=== PATIENT | female | born 1995 | race Caucasian/White ===

== ENCOUNTER → 2018-05-16 09:57 | Outpatient (CLI) | payer OTHER, MEDICAID, SELFPAY ==
--- NOTE | 2018-05-16 10:05 | XR_ITS ---
XR chest 2V HISTORY: ITS.REASON: CHEST WALL PAIN ORDERING PHYSICIAN: ORIN Finley PATIENT AGE: 22 years COMPARISON: 04/23/2018 FINDINGS: The cardiomediastinal silhouette and pulmonary vascularity are within normal limits. No lobar consolidation or collapse. The left hilar region is once again noted to be slightly prominent and may be slightly improved. There is also increased density in the right suprahilar region which may be due to summation density from the rib end and vessels. Recommend 8-12 week follow-up. No acute bony anomalies. IMPRESSION: 1. No definite acute finding. 2. Nonspecific findings including prominence of left hilum and increased density in the right suprahilar region. Consider a to 12 week follow-up to confirm stability. Cannot exclude left hilar adenopathy or parenchymal lesion in the right upper lobe
== END ==
PROVIDERS: PCP Family Medicine; Visit Provider Physician Assistant
DX: R07.89 Other chest pain (principal)
CPT/HCPCS: 71046

== ENCOUNTER → 2018-06-20 13:26 | Outpatient (CLI) | payer OTHER, MEDICAID, SELFPAY ==
--- NOTE | 2018-06-20 13:33 | XR_ITS ---
XR sacrum coccyx min 2V CLINICAL INDICATION: ITS.REASON: LOW BACK PAIN ORDERING PHYSICIAN: ORIN Finley PATIENT AGE: 23 years Comparison: None FINDINGS: No fracture or dislocation. Normal alignment. No lytic or blastic change or significant degenerative change. IMPRESSION: Negative coccyx/sacrum
== END ==
PROVIDERS: PCP Family Medicine; Visit Provider Physician Assistant
DX: M54.5 Low back pain (principal)
CPT/HCPCS: 72220

== ENCOUNTER → 2018-06-26 13:35 | Outpatient (CLI) | payer OTHER, MEDICAID, SELFPAY ==
--- NOTE | 2018-06-26 13:40 | XR_ITS ---
XR hip RT 2-3V w/pelvis HISTORY: ITS.REASON: RT HIP PAIN ORDERING PHYSICIAN: ORIN Finley PATIENT AGE: 23 years COMPARISON: None FINDINGS: No fracture or dislocation is evident. No significant degenerative change. No lytic or blastic change. Unremarkable soft tissues IMPRESSION: Negative hip
--- NOTE | 2018-06-26 13:40 | XR_ITS ---
XR femur RT 2V CLINICAL INDICATION: Right hip pain and tingling in right leg ITS.REASON: RT HIP PAIN ORDERING PHYSICIAN: ORIN Finley PATIENT AGE: 23 years Comparison: None FINDINGS: The right femur including hip and knee have an unremarkable appearance. No bony or joint abnormalities are evident. No soft tissue calcifications IMPRESSION: Negative right femur
== END ==
PROVIDERS: PCP Physician Assistant; Visit Provider Physician Assistant
DX: M25.551 Pain in right hip (principal)
CPT/HCPCS: 73502; 73552

== ENCOUNTER 2018-09-05 11:00 | Outpatient (RCR) | payer OTHER, SELFPAY, MEDICAID ==
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
== END 2018-09-05 11:05 | disposition home or self-care (01) ==
LOC: PT 11:00
PROVIDERS: PCP Physician Assistant; Visit Provider Family Medicine
DX: M53.3 Sacrococcygeal disorders, not elsewhere classified (principal); R20.2 Paresthesia of skin; M25.551 Pain in right hip
CPT/HCPCS: 97010; 97012; 97014; 97033; 97035; 97110; 97163; 97164; G0283

== ENCOUNTER → 2018-09-17 15:53 | Outpatient (CLI) | payer MEDICAID, SELFPAY ==
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
== END ==
PROVIDERS: PCP Family Medicine; Visit Provider Orthopaedic Surgery
DX: M70.61 Trochanteric bursitis, right hip (principal); M76.31 Iliotibial band syndrome, right leg
CPT/HCPCS: 73721

== ENCOUNTER → 2018-11-28 10:19 | Outpatient (CLI) | payer MEDICAID, SELFPAY ==
[2018-11-28 11:42] LABS: HCG,Quantitative 5357 mIU/mL
== END ==
PROVIDERS: Visit Provider Obstetrics & Gynecology
DX: O26.841 Uterine size-date discrepancy, first trimester (principal); Z34.90 Encounter for supervision of normal pregnancy, unspecified, unspecified trimester
CPT/HCPCS: 36415; 84702

== ENCOUNTER → 2018-12-05 11:10 | Outpatient (CLI) | payer MEDICAID, SELFPAY ==
[2018-12-05 12:58] LABS: HCG,Quantitative 39452 mIU/mL
== END ==
PROVIDERS: Visit Provider Obstetrics & Gynecology
DX: Z34.90 Encounter for supervision of normal pregnancy, unspecified, unspecified trimester (principal)
CPT/HCPCS: 36415; 84702

== ENCOUNTER → 2018-12-24 12:49 | Outpatient (CLI) | payer MEDICAID, SELFPAY ==
--- NOTE | 2018-12-24 12:50 | US_ITS ---
US OB transvaginal HISTORY: ITS.REASON: US OB Dates ORDERING PHYSICIAN: Kalyn Rios MD PATIENT AGE: 23 years COMPARISON: None FINDINGS: An intrauterine gestational sac is present with a pole with a crown-rump length of 2.13cm correlating to gestational age of 8w6d. heart tones are present with an FHR of 170 bpm's. Yolk sac is noted. The amnion and chorion have not yet fused. Adnexa: Unremarkable. IMPRESSION: Live intrauterine gestation at 8 weeks 6 days as described above. Estimated due date by Ultrasound is 07/30/2019
== END ==
PROVIDERS: PCP Family Medicine; Visit Provider Obstetrics & Gynecology
DX: O26.841 Uterine size-date discrepancy, first trimester (principal)
CPT/HCPCS: 76817

== ENCOUNTER → 2018-12-25 15:21 | Outpatient (CLI) | payer MEDICAID, SELFPAY ==
[2018-12-25 15:45] LABS: Basophils % 0.3 % (0.1-2.0); Eosinophils # 0.1 K/mm3 (0.0-0.4); Eosinophils % 1.7 % (0.1-12.0); Hematocrit 40.2 % (37.0-47.0); Lymphocytes # 1.6 K/mm3 (0.7-4.5); Lymphocytes % 19.1 % (10-50); Mean Corpuscular HGB Conc 34.9 g/dL (31.8-35.4); Mean Corpuscular Hemoglobin 30.1 pg (27.0-31.2); Mean Corpuscular Volume 86.3 fl (81-99); Mean Platelet Volume 7.4 fl (7.4-10.4); Monocytes # 0.4 K/mm3 (0.1-1.0); Neutrophils # 6.3 K/mm3 (1.8-7.8); Neutrophils % 73.9 % (37.0-80.0); Platelet Count 208 K/mm3 (142-424); Red Blood Count 4.66 M/mm3 (4.20-5.40); Red Cell Distribution Width 13.2 % (11.5-17.5); White Blood Count 8.6 K/mm3 (4.8-10.8)
[2018-12-27 08:22] LABS: Rapid Plasma Reagin Ab Titer Non Reactive (NonRea<1:1)
[2018-12-27 13:00] LABS: HIV Screen 4th Generation wRfx Non Reactive (Non Reactive); Hepatitis B Surface Antigen Negative (Negative); Hepatitis C Antibody <0.1 s/co ratio (0.0-0.9); Rubella Antibodies, IgG 2.27 index (Immune >0.99)
== END ==
PROVIDERS: Visit Provider Obstetrics & Gynecology
DX: Z34.90 Encounter for supervision of normal pregnancy, unspecified, unspecified trimester (principal)
CPT/HCPCS: 36415; 85025; 86592; 86703; 86762; 86850; 87340; 87380; G0432

== ENCOUNTER → 2019-03-15 13:00 | Outpatient (CLI) | payer MEDICAID, SELFPAY ==
--- NOTE | 2019-03-15 13:01 | US_ITS ---
US OB /maternal detail: INDICATION: ITS.REASON: US OB Complete ORDERING PHYSICIAN: Kalyn Rios MD PATIENT AGE: 23 years TECHNIQUE: ultrasound transabdominal scanning. COMPARISON: No previous relevant studies. FINDINGS: Single viable intrauterine gestation. Breech position. Placenta: Anterior placenta grade 1. There is average amount fluid. The cervix appears satisfactory. Closed and measuring 4 cm in length. Complete survey performed and was unremarkable on the submitted images as in PACS. No discrete anomalies identified on survey imaging by technologist. Active fetus. Three-vessel cord with satisfactory umbilical cord insertion. 4- chamber heart noted. Survey of brain & ventricles unremarkable. Face and neck survey unremarkable. Diaphragm and chest views unremarkable. Abdomen: Both kidneys noted and unremarkable. Stomach noted and satisfactory. Spine: Survey of the spine satisfactory with no anomalies identified nor imaged. Both arms and legs noted. Amniotic Fluid: Adequate. Maternal adnexa: No significant findings. Measurements: Average ultrasound age 20w2d. Gestational Age 20w3d. Estimated due date by ultrasound age 1007/31/2019. Estimated weight 341 grams. BPD = 20w3d OFD = 20w3d HC = 19w5d AC = 20w2d FL = 20w3d Growth Percentile= 35%, Heart Rate = 143 Cerebellum = 20w0d Humerus = 20w4d HC/AC is 1.13 (1.09-1.26). CI is 79% (70-86%). FL/BPD is 70%. FL/AC is 22%. IMPRESSION: There is a single live fetus in breech presentation with an average ultrasound age of 20 weeks and 2 days. All parameters correlate with no obvious anomalies. heart and body motion is noted. Please see above for details
== END ==
PROVIDERS: PCP Family Medicine; Visit Provider Obstetrics & Gynecology
DX: Z36.0 Encounter for antenatal screening for chromosomal anomalies (principal)
CPT/HCPCS: 76811

== ENCOUNTER → 2019-03-20 18:07 | Outpatient (CLI) | payer MEDICAID, SELFPAY | PROVIDERS: Visit Provider Obstetrics & Gynecology | DX: R39.89 Other symptoms and signs involving the genitourinary system (principal) | CPT/HCPCS: 87086 ==

== ENCOUNTER 2019-05-13 13:50 | Outpatient (CLI) | payer MEDICAID, SELFPAY ==
[2019-05-13 14:13] VITALS: BP 114/75; PULSE 99; RESP 17; TEMP 36.7; O2SAT 96; BMI 23.6
[2019-05-13 14:51] VITALS: BMI 23.6
[2019-05-13 15:07] LABS: Microscopic, Urine URINE MICROSCOPIC (MICROSCOPIC)
[2019-05-13 15:10] LABS: Appearance,Urine CLEAR (Clear); Bilirubin,Urine Negative (Negative); Blood, Urine Negative (Negative); Color,Urine YELLOW (Yellow); Glucose,Urine (UA) Negative (Negative); Ketones,Urine Negative (Negative); Leukocyte Esterase,Urine TRACE (Negative); Nitrate,Urine Negative (Negative); Protein,Urine Negative (Negative); Specific Gravity, Urine 1.015 (1.005-1.030); Urobilinogen,Urine 0.2 EU/dl (0.2)
[2019-05-13 15:18] LABS: Amphetamine/Metha Screen,Urine Negative ng/mL (<1000); Barbiturates Screen,Urine Negative ng/mL (<200); Benzodiazepines Screen,Urine Negative ng/mL (<200); Cannabinoid Screen,Urine Negative ng/mL (<50); Cocaine Screen,Urine Negative ng/mL (<300); Methadone Screen,Urine Negative ng/mL (<300); Opiate Screen,Urine Negative ng/mL (<300); Phencyclidine Screen,Urine Negative ng/mL (<25)
[2019-05-13 15:24] LABS: Bacteria,Urine 1+ /lpf; WBC,Urine Occasional #/hpf (0-3)
[2019-05-13 15:27] LABS: Alanine Aminotransferase 29 U/L (12-78); Albumin Level 2.5 gm/dL (3.4-5.0); Albumin/Globulin Ratio 0.7 (1.1-1.8); Alkaline Phosphatase 68 U/L (46-116); Anion Gap 11.5 mEq/L (5-15); Aspartate Amino Transferase 25 U/L (15-37); Bilirubin,Total 0.3 mg/dL (0.2-1.0); Blood Urea Nitrogen 5 mg/dL (7-18); Calcium 8.4 mg/dL (8.5-10.1); Carbon Dioxide 25 mmol/L (21.0-32.0); Chloride 104 mmol/L (98-107); Creatinine Clearance Estimated 193 mL/min (50-200); Creatinine,Serum 0.44 mg/dL (0.55-1.02); Estimated Glomerular Filt Rate 181 ml/min (>60); GFR (African American) 218 ML/MIN (>60); Globulin 3.8 gm/dl (1.3-3.2); Glucose 107 mg/dL (74-106); Potassium 3.5 mmoL/L (3.5-5.1); Sodium 137 mmol/L (136-145); Total Protein,Serum 6.3 gm/dL (6.4-8.2)
== END 2019-05-13 16:20 | disposition home or self-care (01) ==
LOC: OBOUT 13:52 → OB 13:53
PROVIDERS: PCP Family Medicine; Visit Provider Obstetrics & Gynecology
DX: O26.892 Other specified pregnancy related conditions, second trimester (principal); Z3A.28 28 weeks gestation of pregnancy; R25.2 Cramp and spasm
CPT/HCPCS: 36415; 59025; 80053; 80305; 81001

== ENCOUNTER → 2019-06-27 17:18 | Outpatient (CLI) | payer MEDICAID, SELFPAY | PROVIDERS: Visit Provider Obstetrics & Gynecology | DX: Z34.90 Encounter for supervision of normal pregnancy, unspecified, unspecified trimester (principal) | CPT/HCPCS: 86403 ==

== ENCOUNTER → 2020-11-18 16:31 | Outpatient (CLI) | payer OTHER, SELFPAY ==
[2020-11-18 18:49] LABS: HCG,Quantitative 10580 mIU/ml (0-5.42)
== END ==
PROVIDERS: Visit Provider Obstetrics & Gynecology
DX: Z32.00 Encounter for pregnancy test, result unknown (principal)
CPT/HCPCS: 36415; 84702

== ENCOUNTER → 2020-11-20 16:02 | Outpatient (CLI) | payer OTHER, SELFPAY ==
[2020-11-20 18:14] LABS: HCG,Quantitative 14281 mIU/ml (0-5.42)
== END ==
PROVIDERS: Visit Provider Obstetrics & Gynecology
DX: Z34.90 Encounter for supervision of normal pregnancy, unspecified, unspecified trimester (principal)
CPT/HCPCS: 36415; 84702

== ENCOUNTER → 2020-12-01 13:25 | Outpatient (CLI) | payer OTHER, SELFPAY ==
--- NOTE | 2020-12-01 13:25 | US_ITS ---
PROCEDURE: US OB TRANSVAGINAL CLINICAL INDICATION: US OB Dates COMPARISON: US OBTV US OB transvaginal from 12/24/2018 FINDINGS: An intrauterine gestational sac is present with a pole with a crown-rump length of 0.98cm correlating to gestational age of 7weeks 1day. heart tones are present with an FHR of 143bpm. Yolk sac is noted. Unremarkable adnexa IMPRESSION: Live IUP at 7 weeks 1 day Estimated due date by Ultrasound is 07/19/2021 Dictated by: Marco Lopez MD 12/01/2020 17:50 Marco Lopez MD in [place] 12/01/2020 17:50
== END ==
PROVIDERS: PCP Family Medicine; Visit Provider Obstetrics & Gynecology
DX: O26.841 Uterine size-date discrepancy, first trimester (principal)
CPT/HCPCS: 76817

== ENCOUNTER → 2020-12-08 09:06 | Outpatient (CLI) | payer OTHER, SELFPAY ==
[2020-12-10 05:23] LABS: Neisseria gonorrhoeae, NAA Negative (Negative)
[2020-12-15 17:21] LABS: Basophils % 0.3 % (0.1-2.0); Eosinophils # 0.2 K/mm3 (0.0-0.4); Eosinophils % 2.4 % (0.1-12.0); Hematocrit 39.3 % (37.0-47.0); Hemoglobin 13.7 g/dL (12.2-16.2); Lymphocytes # 1.9 K/mm3 (0.7-4.5); Mean Corpuscular HGB Conc 34.9 g/dL (31.8-35.4); Mean Corpuscular Hemoglobin 29.8 pg (27.0-31.2); Mean Corpuscular Volume 85.3 fl (81-99); Mean Platelet Volume 7.8 fl (7.4-10.4); Monocytes # 0.4 K/mm3 (0.1-1.0); Monocytes % 4.4 % (1.7-9.3); Neutrophils # 6.8 K/mm3 (1.8-7.8); Neutrophils % 72.9 % (37.0-80.0); Platelet Count 226 K/mm3 (142-424); Red Cell Distribution Width 13.2 % (11.5-17.5); White Blood Count 9.4 K/mm3 (4.8-10.8)
[2020-12-17 11:12] LABS: Rapid Plasma Reagin Ab Titer Non Reactive (NonRea<1:1)
[2020-12-17 11:39] LABS: HIV Screen 4th Generation wRfx Non Reactive (Non Reactive); Hepatitis B Surface Antigen Negative (Negative); Hepatitis C Antibody <0.1 s/co ratio (0.0-0.9); Rubella Antibodies, IgG 2.25 index (Immune >0.99)
== END ==
PROVIDERS: Visit Provider Obstetrics & Gynecology
DX: Z34.90 Encounter for supervision of normal pregnancy, unspecified, unspecified trimester (principal)
CPT/HCPCS: 36415; 85025; 86592; 86703; 86762; 86850; 87340; 87380; 87491; 87591; G0432

== ENCOUNTER → 2020-12-15 16:45 | Outpatient (CLI) | payer OTHER, SELFPAY | PROVIDERS: Visit Provider Obstetrics & Gynecology | DX: Z34.90 Encounter for supervision of normal pregnancy, unspecified, unspecified trimester (principal) ==

== ENCOUNTER → 2020-12-23 10:57 | Outpatient (CLI) | payer OTHER, SELFPAY | PROVIDERS: Visit Provider Obstetrics & Gynecology | DX: Z36.0 Encounter for antenatal screening for chromosomal anomalies (principal) | CPT/HCPCS: 36415 ==

== ENCOUNTER → 2021-03-04 14:10 | Outpatient (CLI) | payer OTHER, SELFPAY ==
--- NOTE | 2021-03-04 14:10 | US_ITS ---
PROCEDURE: US OB >= 14 WEEKS FETUS CLINICAL INDICATION: OB complete COMPARISON: US US OB TRANSVAGINAL from 12/01/2020 FINDINGS: There is a single live intrauterine which is in cephalic presentation. Placenta is posterior and grade 1 without evidence of previa or abruption. Complete survey performed and was unremarkable on the submitted images as in PACS. No discrete anomalies identified on survey imaging by technologist. Active fetus. Three-vessel cord with satisfactory umbilical cord insertion. 4- chamber heart noted. Survey of brain & ventricles Unremarkable. Face and neck survey unremarkable. Diaphragm and chest views unremarkable. Abdomen: Both kidneys noted and unremarkable. Stomach noted and satisfactory. Spine: Survey of the spine satisfactory with no anomalies identified nor imaged. Both arms and legs noted. Amniotic Fluid: Adequate. Maternal adnexa: No significant findings. Measurements: Average ultrasound age 20weeks 2days. Gestational Age 20weeks 2days Estimated due date by ultrasound age 1007/20/2021. Estimated weight 345g BPD = 20weeks 3days OFD = 20weeks 2days HC = 19weeks 4days AC = 20weeks 4days FL = 20weeks 2days Growth Percentile= 38% Heart Rate = 149bpm Cerebellum = 20weeks 4days Humerus = 20weeks 3days HC/AC is 1.11 CI is 0.8 FL/BPD is 0.69 FL/AC is 0.22 IMPRESSION: Live IUP at 20 weeks 2 days. Cephalic presentation. No obvious anomalies. Please see above for detail Dictated by: Marco Lopez MD 03/05/2021 07:21 Marco Lopez MD in [facility] 03/05/2021 07:21
== END ==
PROVIDERS: PCP Family Medicine; Visit Provider Obstetrics & Gynecology
DX: Z34.90 Encounter for supervision of normal pregnancy, unspecified, unspecified trimester (principal)
CPT/HCPCS: 76805

== ENCOUNTER 2021-06-04 11:26 | Outpatient (CLI) | payer OTHER, SELFPAY ==
[2021-06-04] VITALS (8 sets, daily range): BP systolic 91–115; BP diastolic 7–69; PULSE 84–113; RESP 18–20; TEMP 36.8; O2SAT 94–96
== END 2021-06-04 13:31 | disposition home or self-care (01) ==
LOC: INF 11:28
PROVIDERS: PCP Internal Medicine Adolescent Medicine; Visit Provider Internal Medicine Adolescent Medicine
DX: U07.1 COVID-19 (principal)
CPT/HCPCS: 96365

== ENCOUNTER → 2021-06-08 12:46 | Outpatient (CLI) | payer OTHER, SELFPAY ==
--- NOTE | 2021-06-08 12:50 | US_ITS ---
PROCEDURE: US OB FOLLOW UP CLINICAL INDICATION: SGA Small for gestational age COMPARISON: US US OB >= 14 WEEKS FETUS from 03/04/2021 FINDINGS: Single live fetus is present in cephalic presentation. heart and body motion noted. Cervix is closed measuring 4 cm transabdominal. The placenta is posterior and grade 2. Amniotic fluid index is 13 cm. Average ultrasound age is 33 weeks 3 days. Estimated weight 2165 g which is 21 percentile. Biophysical profile 8 of 8. All parameters correlate. BPD 33 weeks/3 OFD 33/1 HC 33/0 AC 33/0 FL 34/1 IMPRESSION: Single live fetus is present in cephalic presentation. heart and body motion noted. Cervix is closed measuring 4 cm transabdominal. The placenta is posterior and grade 2. Amniotic fluid index is 13 cm. Average ultrasound age is 33 weeks 3 days. Estimated weight 2165 g which is 21 percentile. Biophysical profile 8 of 8. Dictated by: Marco Lopez MD 06/08/2021 13:56 Marco Lopez MD in [facility] 06/08/2021 13:56
== END ==
PROVIDERS: PCP Internal Medicine Adolescent Medicine; Visit Provider Obstetrics & Gynecology
DX: O36.5990 Maternal care for other known or suspected poor fetal growth, unspecified trimester, not applicable or unspecified (principal)
CPT/HCPCS: 76816; 76819

== ENCOUNTER → 2021-06-22 17:03 | Outpatient (CLI) | payer OTHER, SELFPAY | PROVIDERS: Visit Provider Obstetrics & Gynecology | DX: Z34.90 Encounter for supervision of normal pregnancy, unspecified, unspecified trimester (principal) | CPT/HCPCS: 86403 ==

== ENCOUNTER 2021-06-23 18:00 | Observation (INO) | payer OTHER, SELFPAY ==
[2021-06-23 14:57] VITALS: BMI 25.1
[2021-06-23 15:52] LABS: Microscopic, Urine URINE MICROSCOPIC (MICROSCOPIC)
[2021-06-23 15:54] LABS: Appearance,Urine SL CLOUDY (Clear); Bilirubin,Urine Negative (Negative); Blood, Urine 1+ (Negative); Color,Urine YELLOW (Yellow); Glucose,Urine (UA) Negative (Negative); Ketones,Urine Negative (Negative); Leukocyte Esterase,Urine 2+ (Negative); Nitrate,Urine Negative (Negative); Protein,Urine Negative (Negative); Specific Gravity, Urine 1.015 (1.005-1.030); Urobilinogen,Urine 0.2 EU/dl (0.2)
[2021-06-23 16:06] LABS: Amphetamine/Metha Screen,Urine Negative ng/ml (<1000); Barbiturates Screen,Urine Negative ng/ml (<200)
[2021-06-23 16:07] LABS: Benzodiazepines Screen,Urine Negative ng/ml (<200); Cannabinoid Screen,Urine Negative ng/ml (<50)
[2021-06-23 16:08] LABS: Cocaine Screen,Urine Negative ng/ml (<300)
[2021-06-23 16:09] LABS: Methadone Screen,Urine Negative ng/ml (<300); Phencyclidine Screen,Urine Negative ng/ml (<25)
[2021-06-23 16:10] LABS: Opiate Screen,Urine Negative ng/ml (<300)
[2021-06-23 16:11] LABS: Bacteria,Urine 3+ /lpf
[2021-06-23 16:13] VITALS: BP 107/73; PULSE 111; RESP 20; TEMP 36.7; O2SAT 97; BMI 25.4
[2021-06-23 17:18] LABS: Influenza A, PCR Not Detected (NotDetected); Influenza B, PCR Not Detected (NotDetected)
[2021-06-23 17:50] LABS: Coronavirus 19, PCR Detected (NotDetected)
[2021-06-23 17:52] LABS: MANUAL DIFFERENTIAL MANUAL DIFFERENTIAL (MANUAL DIFF)
[2021-06-23 17:57] LABS: Basophils % 0.4 % (0.1-2.0); Eosinophils # 0.1 K/mm3 (0.0-0.4); Eosinophils % 0.9 % (0.1-12.0); Hematocrit 35.4 % (37.0-47.0); Hemoglobin 11.6 g/dL (12.2-16.2); Lymphocytes # 1.5 K/mm3 (0.7-4.5); Lymphocytes % 17.1 % (10-50); Mean Corpuscular HGB Conc 32.7 g/dL (31.8-35.4); Mean Corpuscular Hemoglobin 27.7 pg (27.0-31.2); Mean Corpuscular Volume 84.8 fl (81-99); Monocytes # 0.5 K/mm3 (0.1-1.0); Neutrophils # 6.5 K/mm3 (1.8-7.8); Neutrophils % 75.7 % (37.0-80.0); Platelet Count 257 K/mm3 (142-424); Red Blood Count 4.18 M/mm3 (4.20-5.40); Red Cell Distribution Width 14.7 % (11.5-17.5); White Blood Count 8.5 K/mm3 (4.8-10.8)
[2021-06-23 18:19] LABS: Lymphocytes % 21 % (10-50); Monocytes % 8 % (2-9); Neutrophils % 71 % (42-76); Platelet Estimate Normal; RBC Morphology Normal; Total Cells Counted 100
--- NOTE | 2021-06-24 11:50 | HMH.HPDC ---
General - General Admission date:: 06/23/21 Discharge date: 06/24/21 *Admission Date: 06/23/21 *Chief complaint: contractions *History of present illness: 26 yo @ 36 3/7 weeks presented with complaint of regular contractions No vaginal bleeding or leakage of fluid Tocometer showed contractions q 2-3 minutes and cervix 2-3 cm dilated She was admitted for observation status reassuring Covid positive 06/04/21 and s/p monoclonal antibody treatment [facility] History I have reviewed the patient's past medical history: Yes Medical History: Denies:: Diabetes Mellitus Type 2 *Have you ever received a pneumonia vaccine?: No *Have you received a flu vaccine this season?: No Other Surgeries: Yes: No Previous Surgery. No: Amputation: No Fractures: No - *Social History Smoking Status: Never smoker Alcohol Intake: never Substance Use Type: denies use *Occupational Status:: unemployed *Travel in the last 8 weeks: None Family Hx:: Cancer : 2 Para: 1 Review of Systems - Review of Systems Review of systems:: pertinent systems reviewed and negative unless documented below - Constitutional Denies chills, Denies fever(s) - *Respiratory Denies cough - *Genitourinary Reports other (+ contractions), Denies abnormal vaginal bleeding - Psychiatric Reports anxiety Exam Vital signs and Labs for Last 24 Hours: Temp Pulse Resp BP Pulse Ox 98.0 F 111 H 20 107/73 L 97 06/23/21 16:13 06/23/21 16:13 06/23/21 16:13 06/23/21 16:13 06/23/21 16:13 Laboratory Results - last 24 hr 06/23/21 15:05: Urine Color Yellow, Urine Appearance Sl cloudy, Urine pH 7.0, Ur Specific [place] 1.015, Urine Protein Negative, Urine Glucose (UA) Negative, Urine Ketones Negative, Urine Blood 1+, Urine Nitrate Negative, Urine Bilirubin Negative, Urine Urobilinogen 0.2, Ur Leukocyte Esterase 2+ A, Urine RBC 3-5, Urine WBC 5-10, Ur Squamous Epith Cells 3-5, Urine Bacteria 3+ 06/23/21 15:05: Urine Opiates Screen Negative, Urine Methadone Screen Negative, Ur Barbituates Screen Negative, Ur Phencyclidine Scrn Negative, Ur Amphetamines Screen Negative, U Benzodiazepines Scrn Negative, Urine Cocaine Screen Negative, U Marijuana (THC) Screen Negative 06/23/21 17:05: WBC 8.5, RBC 4.18 L, Hgb 11.6 L, Hct 35.4 L, MCV 84.8, MCH 27.7, MCHC 32.7, RDW 14.7, Plt Count 257, MPV 9.0, Neut % (Auto) 75.7, Lymph % (Auto) 17.1, Giles % (Auto) 6.0, Eos % (Auto) 0.9, Baso % (Auto) 0.4, Neut # (Auto) 6.5, Lymph # (Auto) 1.5, Giles # (Auto) 0.5, Eos # (Auto) 0.1, Baso # (Auto) 0.0, Total Counted 100, Neutrophils % (Manual) 71, Lymphocytes % (Manual) 21, Monocytes % (Manual) 8, Platelet Estimate Normal, RBC Morphology Normal 06/23/21 17:05: SARS-CoV-2 (PCR) Detected A, Influenza A Untype (PCR) Not detected, Influenza Type B (PCR) Not detected 06/23/21 17:05: Blood Type AB Negative, Antibody Screen Negative I & O for Last 24 hours: Intake & Output 06/21/21 06/22/21 06/23/21 06/24/21 11:59 11:59 11:59 11:59 Weight 144 lb - Constitutional no acute distress - *Routine HEENT Exam Head: Present: normocephalic Eye: Absent: conjunctival icterus ENT: Present: mucous membranes moist - *Routine Neck Exam Present: supple. Absent: lymphadenopathy - *Routine Respiratory Exam Present: CTA bilaterally - *Routine Cardiovascular Exam Present: RRR - *Routine Abdominal Exam Present: soft, normoactive bowel sounds. Absent: tenderness - *Routine Rectal Exam Rectal:: deferred - *Routine Genitalia Exam Genitalia:: normal female Comment:: cervix 2-3/50% - *Routine Extremities Exam Absent: cyanosis, clubbing, edema - *Routine Skin Exam Present: warm. Absent: rash - *Routine Neurological Exam Present: alert, oriented X3 Hospital Course Hospital Course: Admitted for observation with monitoring and tocometer Contractions q 2-5 minutes but no cervical change status reassuring Discharged home after overnight observ
== END 2021-06-24 11:45 | disposition home or self-care (01) ==
LOC: OBOUT 18:01 → OB 18:01
PROVIDERS: Admitting Provider Obstetrics & Gynecology; PCP Internal Medicine Adolescent Medicine; Visit Provider Obstetrics & Gynecology
DX: O60.03 Preterm labor without delivery, third trimester (principal); Z3A.36 36 weeks gestation of pregnancy; U07.1 COVID-19; O98.513 Other viral diseases complicating pregnancy, third trimester; O99.013 Anemia complicating pregnancy, third trimester; D64.9 Anemia, unspecified
CPT/HCPCS: 36415; 59025; 80305; 81001; 85007; 85014; 85018; 85048; 85049; 86850; 87086; 96360; C9803; G0378; U0003; U0005

== ENCOUNTER 2021-06-28 00:26 | Outpatient (CLI) | payer OTHER, SELFPAY ==
[2021-06-28 00:42] VITALS: BMI 26.1
[2021-06-28 01:04] LABS: Microscopic, Urine URINE MICROSCOPIC (MICROSCOPIC)
[2021-06-28 01:06] LABS: Appearance,Urine CLEAR (Clear); Bilirubin,Urine Negative (Negative); Blood, Urine TRACE-I (Negative); Color,Urine YELLOW (Yellow); Glucose,Urine (UA) Negative (Negative); Ketones,Urine Negative (Negative); Leukocyte Esterase,Urine 1+ (Negative); Nitrate,Urine Negative (Negative); PH,Urine 7.5 (5.0-8.5); Protein,Urine Negative (Negative); Urobilinogen,Urine 0.2 EU/dl (0.2)
[2021-06-28 01:12] LABS: Amorphous Sediment,Urine Trace /lpf; Squamous Epithelial Cell,Urine Occasional #/hpf (0-5)
[2021-06-28 01:22] LABS: Amphetamine/Metha Screen,Urine Negative ng/ml (<1000)
[2021-06-28 01:23] LABS: Barbiturates Screen,Urine Negative ng/ml (<200); Benzodiazepines Screen,Urine Negative ng/ml (<200)
[2021-06-28 01:24] LABS: Cannabinoid Screen,Urine Negative ng/ml (<50)
[2021-06-28 01:25] LABS: Cocaine Screen,Urine Negative ng/ml (<300); Methadone Screen,Urine Negative ng/ml (<300)
[2021-06-28 01:26] LABS: Opiate Screen,Urine Negative ng/ml (<300)
[2021-06-28 01:27] LABS: Phencyclidine Screen,Urine Negative ng/ml (<25)
[2021-06-28 01:56] VITALS: BP 119/80; PULSE 90; RESP 18; TEMP 36.7; O2SAT 96; BMI 26.2
== END 2021-06-28 03:20 | disposition home or self-care (01) ==
LOC: OBOUT 00:28 → OB 00:29
PROVIDERS: PCP Internal Medicine Adolescent Medicine; Referring Provider Obstetrics & Gynecology; Visit Provider Nurse Practitioner Obstetrics & Gynecology
DX: O60.03 Preterm labor without delivery, third trimester (principal); Z3A.37 37 weeks gestation of pregnancy
CPT/HCPCS: 59025; 80305; 81001; 87086; 96365; 96366; 96372; G0463

== ENCOUNTER 2021-07-01 10:40 | Inpatient (IN) | payer OTHER, SELFPAY ==
[2021-07-01 10:45] VITALS: BMI 25.7
[2021-07-01 11:34] LABS: Coronavirus 19, PCR Not Detected (NotDetected); Influenza A, PCR Not Detected (NotDetected); Influenza B, PCR Not Detected (NotDetected)
--- NOTE | 2021-07-01 12:51 | HMH.PHAINT ---
MEDICATION RECONCILIATION COMPLETE USING PREVIOUS DISCHARGE PAPERWORK
--- NOTE | 2021-07-01 13:17 | HMH.HP ---
*Admission Date: 07/01/21 *Chief complaint: contractions *History of present illness: 26 yo @ 37 4/7 presented to office with complaint of regular contractions. No vaginal bleeding or leakage of fluid. NST/TOCO in office showed contractions q2 minutes, with cervical change from 2cm to 4cm She was sent to L&D for direct admission G1 delivered at 35 weeks Rh negative maternal status but she declines rhogam with known Rh negative paternal blood Recent covid infection with monoclonal antibody treatment [facility] History I have reviewed the patient's past medical history: Yes Medical History: Denies:: Diabetes Mellitus Type 2 *Have you ever received a pneumonia vaccine?: No *Have you received a flu vaccine this season?: No Other Surgeries: Yes: No Previous Surgery. No: Amputation: No Fractures: No - *Social History Smoking Status: Never smoker Alcohol Intake: never Substance Use Type: denies use *Occupational Status:: unemployed *Travel in the last 8 weeks: None Family Hx:: Cancer Review of Systems - Review of Systems Review of systems:: pertinent systems reviewed and negative unless documented below - *Genitourinary Reports other (+ contractions), Denies abnormal vaginal bleeding Meds Home Medications Medication Instructions Recorded Confirmed Type vit no.95-ferrous 1 tab PO DAILY 12/07/20 07/01/21 History fumarate 28 mg-folic acid 800 mcg tablet Acetaminophen [Acetaminophen 325mg 650 mg PO Q4HP PRN 07/01/21 07/01/21 History tab] Allergies Allergy/AdvReac Type Severity Reaction Status Date / Time No Known Allergies Allergy Verified 07/01/21 09:42 Exam Vital signs and Labs for Last 24 Hours: Laboratory Results - last 24 hr 07/01/21 11:14: SARS-CoV-2 (PCR) Not detected, Influenza A Untype (PCR) Not detected, Influenza Type B (PCR) Not detected I & O for Last 24 hours: Intake & Output 06/29/21 06/30/21 07/01/21 07/02/21 11:59 11:59 11:59 11:59 Weight 145 lb - Constitutional no acute distress - *Routine HEENT Exam Head: Present: normocephalic Eye: Present: EOMI, PERRL ENT: Present: mucous membranes moist - *Routine Neck Exam Present: supple. Absent: lymphadenopathy - *Routine Respiratory Exam Present: CTA bilaterally - *Routine Cardiovascular Exam Present: RRR - *Routine Abdominal Exam Present: soft, normoactive bowel sounds. Absent: tenderness - *Routine Rectal Exam Rectal:: deferred - *Routine Genitalia Exam Genitalia:: normal female, other (cervix 4/75) - *Routine Extremities Exam Absent: cyanosis, clubbing, edema - *Routine Skin Exam Present: warm. Absent: rash - *Routine Neurological Exam Present: alert, oriented X3 Assessment and Plan (1) 37 weeks gestation of Status: Acute Category: Medical Code(s): Z3A.37 - 37 weeks gestation of (2) Active labor at term Status: Acute Category: Medical (3) Anemia affecting Status: Acute Category: Medical Code(s): O99.019 - Anemia complicating , unspecified trimester (4) Anxiety during Status: Acute Category: Medical Code(s): O99.340 - Other mental disorders complicating , unspecified trimester; F41.9 - Anxiety disorder, unspecified (5) COVID-19 affecting , antepartum Status: Acute Category: Medical Code(s): O98.519 - Other viral diseases complicating , unspecified trimester; U07.1 - COVID-19 (6) Rh negative status during Problem details: FOB rh negative Status: Acute Category: Medical Code(s): O26.899 - Other specified related conditions, unspecified trimester; Z67.91 - Unspecified blood type, Rh negative - Assessment and plan all Dx Assessment and Plan for all problems:: Admitted in active labor Pitocin augmentation as needed Epidural at patient request Continuous monitoring
--- NOTE | 2021-07-01 14:02 | HMH.ANESCL ---
[facility] Anesthesia Checklist - Patient Identification Patient Identification: Arm Band, Verbal (Name & ) - Structural Data Admitted From: Home Planned Operative Procedure/s: labor epidural Consent for Planned Operative Procedure(s) Verified: Yes Verified Documents: History and Physical - NPO Status Verified Time NPO: 00:00 - Chart Verification Results Verified: CBC, BMP - Additional verifications Patient : No Anesthesia Reactions: No Hx Blood Transfusions: No Blood Transfusion Reaction: No Cephalosporin Allergy: No Previous Colonoscopy: No - Cardiovascular Assessment Heart Sounds: S1 & S2 Pulse Strength: Baseline Pulse Rhythm: Regular Peripheral Edema: No - Airway Assessment C-Spine Mobility Assessed: Yes TMJ Mobility Assessed: Yes Dentition: Good Dentition - Neurological Assessment Level of Consciousness: Awake, Alert, Appropriate Hx Seizures: No Numbness or tingling in extremities: No - Anesthesia Plan Anesthesia Risk discussed: Yes Anesthesia Plan: Verified ASA Class: II Anesthesia Type: Epidural [facility] History I have reviewed the patient's past medical history: Yes Medical History: Denies:: Diabetes Mellitus Type 2 *Have you ever received a pneumonia vaccine?: No *Have you received a flu vaccine this season?: No Anesthesia experience/problems:: none Other Surgeries: Yes: No Previous Surgery. No: Amputation: No Fractures: No - *Social History Smoking Status: Never smoker Alcohol Intake: never Substance Use Type: denies use *Occupational Status:: unemployed *Travel in the last 8 weeks: None Family Hx:: Cancer
[2021-07-01 14:10] VITALS: BP 105/72; PULSE 100; RESP 16; TEMP 37.2; O2SAT 96; BMI 25.7
[2021-07-01 14:28] LABS: Basophils % 0.4 % (0.1-2.0); Eosinophils # 0.1 K/mm3 (0.0-0.4); Eosinophils % 1.2 % (0.1-12.0); Hematocrit 36.1 % (37.0-47.0); Hemoglobin 11.9 g/dL (12.2-16.2); Lymphocytes # 1.2 K/mm3 (0.7-4.5); Lymphocytes % 14.8 % (10-50); Mean Corpuscular HGB Conc 32.9 g/dL (31.8-35.4); Mean Corpuscular Hemoglobin 27.8 pg (27.0-31.2); Mean Corpuscular Volume 84.4 fl (81-99); Mean Platelet Volume 9.6 fl (7.4-10.4); Monocytes # 0.4 K/mm3 (0.1-1.0); Monocytes % 4.7 % (1.7-9.3); Neutrophils # 6.3 K/mm3 (1.8-7.8); Neutrophils % 78.9 % (37.0-80.0); Platelet Count 235 K/mm3 (142-424); Red Blood Count 4.28 M/mm3 (4.20-5.40)
[2021-07-01 14:49] LABS: Barbiturates Screen,Urine Negative ng/ml (<200)
[2021-07-01 14:50] LABS: Benzodiazepines Screen,Urine Negative ng/ml (<200)
[2021-07-01 14:51] LABS: Amphetamine/Metha Screen,Urine Negative ng/ml (<1000); Methadone Screen,Urine Negative ng/ml (<300)
[2021-07-01 14:52] LABS: Cannabinoid Screen,Urine Negative ng/ml (<50); Cocaine Screen,Urine Negative ng/ml (<300)
[2021-07-01 14:53] LABS: Opiate Screen,Urine Negative ng/ml (<300)
[2021-07-01 14:54] LABS: Phencyclidine Screen,Urine Negative ng/ml (<25)
--- NOTE | 2021-07-01 17:05 | HMH.DN ---
- Delivery Note Delivery Date:: 07/01/21 Delivery Time:: 15:56 Anesthesia Type: Epidural Was labor medically induced?: No Infant delivered prior to 39 weeks?: Yes Justification for early elective delivery:: Active Labor Infant Gender: Female at 1 minute: 8 at 5 minutes: 8 Delivery Procedure:: Spontaneous vaginal delivery of liveborn female over intact perineum. Delivery uncomplicated No nuchal cord; no shoulder dystocia with delivery placed in RAN with mother immediately after umbilical cord clamped/cut, with standard nursing assessment performed Infant Apgars: 8 & 8 Placenta spontaneously expressed and examined; noted to be complete/intact. Vulva, vagina, and cervix inspected; first degree vaginal laceration repaired with 3-0 vicryl EBL: 300 cc All sponge/needle/instrument counts correct at conclusion of procedure Disposition: Mom/baby stable to recovery in LDRP Laceration:: vaginal (First degree) Placental Delivery Description: Spontaneous
[2021-07-01 20:00] VITALS: BP 108/69; PULSE 88; RESP 18; TEMP 37.1; O2SAT 97
[2021-07-02 04:22] VITALS: BP 96/51; PULSE 89; RESP 16; TEMP 36.8; O2SAT 97
[2021-07-02 08:01] LABS: Hematocrit 37.2 % (37.0-47.0); Hemoglobin 12.4 g/dL (12.2-16.2)
--- NOTE | 2021-07-02 13:53 | HMH.DCSUM ---
General - General Admission date:: 07/01/21 Discharge date: 07/02/21 HPI HPI: 26 yo @ 37 4/7 presented to office with complaint of regular contractions. No vaginal bleeding or leakage of fluid. NST/TOCO in office showed contractions q2 minutes, with cervical change from 2cm to 4cm She was sent to L&D for direct admission G1 delivered at 35 weeks Rh negative maternal status but she declines rhogam with known Rh negative paternal blood Recent covid infection with monoclonal antibody treatment Hospital Course Hospital Course: Uncomplicated course uneventful Tolerating regular diet, ambulating and voiding without difficulty Infant Rh negative and maternal rhogam not needed Desires discharge on PPD 1 Objective Vital signs: Temp Pulse Resp BP Pulse Ox 98.2 F 89 16 96/51 L 97 07/02/21 04:22 07/02/21 04:22 07/02/21 04:22 07/02/21 04:22 07/02/21 04:22 Narrative: CONSTITUTIONAL: no acute distress HEENT: mucous membranes moist PULMONARY: breathing unlabored without audible wheezes CV: no tachycardia or visible JVD; normal LE peripheral pulses ABD: soft, NT/ND, no guarding : fundus firm at/below umbilicus SKIN: no visible rash or lesions EXT: 1+ edema LEs NEURO: alert/oriented, no altered mental status PSYCH: appropriate mood and demeanor Results Labs on day of discharge: Labs from last 24 hours 07/02/21 07/02/21 07/01/21 07:49 07:49 12:45 WBC RBC Hgb 12.4 Hct 37.2 MCV MCH MCHC RDW Plt Count MPV Neut % (Auto) Lymph % (Auto) [place] % (Auto) Eos % (Auto) Baso % (Auto) Neut # (Auto) Lymph # (Auto) [place] # (Auto) Eos # (Auto) Baso # (Auto) Urine Opiates Screen Negative Urine Methadone Screen Negative Ur Barbituates Screen Negative Ur Phencyclidine Scrn Negative Ur Amphetamines Screen Negative U Benzodiazepines Scrn Negative Urine Cocaine Screen Negative U Marijuana (THC) Screen Negative Blood Type Antibody Screen Screen Negative Baby's Rh Status Unknown Rhogam Infusion Rhogam release 07/01/21 07/01/21 12:12 12:12 WBC 8.0 RBC 4.28 Hgb 11.9 L Hct 36.1 L MCV 84.4 MCH 27.8 MCHC 32.9 RDW 15.0 Plt Count 235 MPV 9.6 Neut % (Auto) 78.9 Lymph % (Auto) 14.8 [place] % (Auto) 4.7 Eos % (Auto) 1.2 Baso % (Auto) 0.4 Neut # (Auto) 6.3 Lymph # (Auto) 1.2 [place] # (Auto) 0.4 Eos # (Auto) 0.1 Baso # (Auto) 0.0 Urine Opiates Screen Urine Methadone Screen Ur Barbituates Screen Ur Phencyclidine Scrn Ur Amphetamines Screen U Benzodiazepines Scrn Urine Cocaine Screen U Marijuana (THC) Screen Blood Type AB Negative Antibody Screen Negative Screen Baby's Rh Status Rhogam Infusion DS: Diagnosis - Discharge Diagnosis (1) 37 weeks gestation of Status: Acute (2) Active labor at term Status: Acute (3) Anemia affecting Status: Acute (4) Anxiety during Status: Acute (5) COVID-19 affecting , antepartum Status: Acute (6) Rh negative status during Status: Acute Problem details: FOB rh negative Discharge Plan - Patient Discharge Instructions ACTIVITY: Continue current activity DIET: regular diet Additional Instructions: Drink plenty of fluids Nothing in the vagina for 6 weeks No tub baths Patient Instructions: Depression, Hemorrhage, DI for Labor and Delivery, Vaginal , DI for Pre-eclampsia, [facility] Post Discharge Instructions, Preventing the Spread of Coronavirus Discharge Instructions - Follow up Plan Follow up with: Kalyn Rios MD [Staff Physician] - Disposition: Home, Self-Care Condition at discharge:: Stable Home Medications: Home Medications Medication Instructions Recorded Confirmed Type vit [id number]
== END 2021-07-02 14:30 | disposition home or self-care (01) | DRG 807 ==
PROVIDERS: Admitting Provider Obstetrics & Gynecology; PCP Pediatrics; Visit Provider Obstetrics & Gynecology
DX: O70.0 First degree perineal laceration during delivery (principal); Z37.0 Single live birth; O99.02 Anemia complicating childbirth; O26.899 Other specified pregnancy related conditions, unspecified trimester; D64.9 Anemia, unspecified; Z3A.37 37 weeks gestation of pregnancy
CPT/HCPCS: 59409; 59025; 80305; 85014; 85018; 85025; 85461; 86850; 94761; C9803; G0283; J2790; U0003; U0005

== ENCOUNTER → 2022-02-07 10:03 | Outpatient (CLI) | payer OTHER, SELFPAY ==
[2022-02-07 10:25] LABS: Strep Scrn Group A (Rapid) Negative (Negative)
== END ==
PROVIDERS: PCP Internal Medicine Adolescent Medicine; Visit Provider Nurse Practitioner
DX: J02.9 Acute pharyngitis, unspecified (principal)
CPT/HCPCS: 87430

== ENCOUNTER 2022-03-24 07:54 | Emergency (ER) | payer OTHER, SELFPAY ==
[2022-03-24 08:02] VITALS: BP 104/68; PULSE 105; RESP 17; TEMP 37; O2SAT 98; BMI 21.4
[2022-03-24 08:13] LABS: Strep Scrn Group A (Rapid) Negative (Negative)
--- NOTE | 2022-03-24 08:37 | HMH.EDUTC ---
[facility] [place] Clinical Impression: Pharyngitis Qualifiers: Pharyngitis/tonsillitis etiology: unspecified etiology Qualified Code(s): J02.9 - Acute pharyngitis, unspecified Disposition: Home, Self-Care Condition on Discharge: Good Instructions: Sore Throat, DI for Pharyngitis/Tonsillopharyngitis -- Adult Additional Instructions: Drink plenty of fluids. Take tylenol or ibuprofen for pain or fever. Take the medications as directed. Follow up with your regular doctor. GO TO THE ER FOR ANY WORSENING SYMPTOMS Prescriptions: Brompheniramine/Pseudoephed/Dm [Bromfed Dm Cough Syrup] 5 ml PO Q6HP PRN #240 ml PRN Reason: Cough Transmission Status: Received by [facility] methylPREDNISolone [Medrol] 4 mg PO DIRECTED 6 Days #21 packet Transmission Status: Received by [facility] Azithromycin [Z-Bebo 250mg Tab*] 250 mg PO UD DOSE PK #6 tab Transmission Status: Received by [facility] Referrals: Pierre Collins MD [Primary Care Provider] - Time of Disposition: 08:42 Medical Decision Making - Medical Records Medical records reviewed: No: I reviewed the patient's medical records. - Owen Inquiry Pt receiving controlled substance: No Vital Signs: 03/24/22 08:02 03/24/22 08:44 Temperature 98.6 F 98.6 F Temperature Source Oral Pulse Rate 105 H Pulse Rate [Left Radial] 105 H Respiratory Rate 17 17 Blood Pressure 104/68 L Blood Pressure [Right Arm] 104/68 L Blood Pressure Mean [Right Arm] 80 02 Sat by Pulse Oximetry 98 - Lab Data Lab Results 03/24/22 08:00: Group A Strep Rapid Negative Orders (Tests/Meds): ORDERS Category Date Time Status Strep Screen Confirmation Stat Micro 03/24/22 08:00 Received [facility] [place] - General Stated complaint: strep test Time Seen by Provider: 03/24/22 08:40 Description of Symptoms (Recalled from Triage Doc. by RN): patient comes in today with complaints of sore throat, red with blisters, and bilateral ear pain. symptons have been going on for 4-5 days. HEENT Symptoms (Recalled from RN notes): Yes Resp Symptoms (Recalled from RN notes): No Skin Symptoms (Recalled from RN notes): No MS Symptoms (Recalled from RN notes): No Functional Status (Recalled from RN notes): wnl - History of Present Illness Provider Complaint: She states that for the past 2 days she has had a worsening sore throat and malaise. She denies any fever or chills. She denies that she needs or wants a covid-19 test. - Related Data Previous Rx's Medication Instructions Recorded norethindrone 1 mg-ethinyl 1 tab PO DAILY #28 tab 11/15/21 estradiol 20 mcg (21)-iron 75 mg (7) tablet Azithromycin [Z-Bebo 250mg Tab*] 250 mg PO UD DOSE PK #6 tab 02/08/22 methylPREDNISolone [Medrol] 4 mg PO DIRECTED 6 Days #21 02/08/22 packet Azithromycin [Z-Bebo 250mg Tab*] 250 mg PO UD DOSE PK #6 tab 03/24/22 Brompheniramine/Pseudoephed/Dm 5 ml PO Q6HP PRN #240 ml 03/24/22 [Bromfed Dm Cough Syrup] methylPREDNISolone [Medrol] 4 mg PO DIRECTED 6 Days #21 03/24/22 packet Allergies Allergy/AdvReac Type Severity Reaction Status Date / Time No Known Allergies Allergy Verified 03/24/22 08:06 - Worker's Comp Is this a Worker's Comp case?: No [facility] History - Hepatitis A Screen Attestation statement:: This patient has been screened for Hepatitis A risk factors. I have reviewed the patient's past medical history: Yes Medical History: Denies:: Diabetes Mellitus Type 2, Seizures Other Medical History: Denies: Blood Transfusion Reaction Other Surgeries: Yes: No Previous Surgery. No: Amputation: No Fractures: No - Social History Smoking Status: Never smoker Alcohol Intake: never Substance Use Type: denies use Occupational Status: employed Family Hx:: Cancer ROS Obtained: Yes All systems reviewed & no additional complaints - Constitutional Constitutional: Reports as per HPI - Eyes Eyes: Denies eye discharge - ENT Ear
[2022-03-24 08:44] VITALS: BP 104/68; PULSE 105; RESP 17; TEMP 37
== END 2022-03-24 08:45 | disposition home or self-care (01) ==
PROVIDERS: Emergency Provider Nurse Practitioner Family; PCP Internal Medicine Adolescent Medicine
DX: J02.9 Acute pharyngitis, unspecified (principal); H92.03 Otalgia, bilateral
CPT/HCPCS: 87430; 99212; G0463

== ENCOUNTER → 2022-06-13 13:11 | Outpatient (CLI) | payer OTHER, SELFPAY ==
--- NOTE | 2022-06-13 13:14 | XR_ITS ---
FINAL REPORT CLINICAL HISTORY: SUBACUTE COUGH COMPARISON: May 16, 2018 FINDINGS: TWO-VIEW CHEST Two views of the chest were obtained. The heart size and pulmonary vascularity are within normal limits. The mediastinum is normal. No acute pulmonary abnormality is identified. There is no pneumothorax. The bony thorax is intact. IMPRESSION: No active cardiopulmonary disease. Reviewed, Interpreted and Dictated by Joshua Wisdom III, MD Transcribed by Marguerite Srinivasan Authenticated and [facility]
== END ==
PROVIDERS: PCP Nurse Practitioner Family; Visit Provider Nurse Practitioner Family
DX: R05.2 Subacute cough (principal)
CPT/HCPCS: 71046

== ENCOUNTER → 2022-10-11 15:59 | Outpatient (CLI) | payer OTHER, SELFPAY ==
[2022-10-11 16:05] VITALS: BMI 20.7
[2022-10-11 17:13] LABS: Coronavirus 19, PCR Not Detected (NotDetected); Influenza A, PCR Not Detected (NotDetected); Influenza B, PCR Not Detected (NotDetected)
== END ==
PROVIDERS: PCP Internal Medicine Adolescent Medicine; Visit Provider Nurse Practitioner Family
DX: Z20.822 Contact with and (suspected) exposure to COVID-19 (principal)
CPT/HCPCS: C9803; U0003; U0005

== ENCOUNTER 2022-11-14 12:29 | Emergency (ER) | payer OTHER, SELFPAY ==
[2022-11-14 13:20] VITALS: BP 115/78; PULSE 94; RESP 16; TEMP 37.1; O2SAT 98; BMI 21.7
--- NOTE | 2022-11-14 13:42 | EXP.UTC ---
Discharge Plan Disposition Patient Disposition: Home, Self-Care Condition: Good Prescriptions Prescriptions: New meclizine 12.5 mg tablet 12.5 mg PO TID PRN (Reason: dizziness) Qty: 15 0RF No Action norethindrone-e.estradiol-iron [10/21 ()] 1 mg-20 mcg (21)/75 mg (7) tablet 1 tab PO DAILY Qty: 84 3RF fluconazole 150 mg tablet 150 mg PO Q3D Qty: 2 0RF azithromycin [Zithromax] 250 mg tablet 250 mg PO UD DOSE PK Qty: 6 0RF Rx Instructions: Take two (2) tablets today, then one (1) tablet days #2 thru #5 methylprednisolone 4 mg Tablets,Dose Pack 4 mg PO DIRECTED Qty: 21 0RF [id number] [Bromfed DM] 2-30-10 mg/5 mL Syrup 5 ml PO Q6H PRN (Reason: Cough) Qty: 240 0RF Referrals Follow up/Referrals: Pierre Collins MD [Primary Care Provider] - See instructions Activity Restrictions/Add. Instructions Additional Instructions/Restrictions: Slow steady movements Make sure to sit on edge of bed and dangle feet before standing to help prevent falling Follow up with your Family Doctor if no improvement or any worsening of symptoms Return if needed Straight to ER if any life threatening symptoms Clinical Impressions Clinical Impression: Vertigo Instructions Patient Instructions: Vertigo, DI for Vertigo, Meclizine Discharge ED Provider: Amrita Acevedo [facility] General Stated complaint: nausea, dizzy Time Seen by Provider: 11/14/22 13:42 History of Present Illness Provider Complaint: Patient state that she started yesterday that when she would rollover in bed, move her head too quickly or change positions she was feeling a little dizzy and it would make her sick at her stomach States that today she has been having it also and it got better as the day went on States this morning when she felt like the room was spinning again she came in Related Data Previous Rx's Medication Instructions Recorded norethindrone 1 mg-ethinyl 1 tab PO DAILY #84 tabs 09/02/22 estradiol 20 mcg (21)-iron 75 mg (7) tablet (10/21 ()) fluconazole 150 mg tablet 150 mg PO Q3D 2 doses #2 tabs 09/09/22 azithromycin 250 mg tablet 250 mg PO UD DOSE PK #6 tabs 10/11/22 (Zithromax) [id number] 5 ml PO Q6H PRN Cough #240 mL 10/11/22 2 mg-30 mg-10 mg/5 mL oral syrup (Bromfed DM) methylprednisolone 4 mg tablets in 4 mg PO DIRECTED #21 tabs 10/11/22 a dose pack meclizine 12.5 mg tablet 12.5 mg PO TID PRN dizziness #15 11/14/22 tabs Allergies Allergy/AdvReac Type Severity Reaction Status Date / Time No Known Allergies Allergy Verified 09/02/22 09:07 [facility] Disclaimer: The information contained in this section may have been updated after the patient was seen, as this information can be updated by other users. Medical History (Updated 11/14/22 @ 13:52 by Amrita Acevedo APRN) No significant past medical history Social History (Updated 11/14/22 @ 13:48 by Jenn Monae RN) Smoking Status: Never smoker alcohol intake: never substance use type: denies use current occupational status: employed Travel in the last 8 weeks: None ROS Obtained: Yes All systems reviewed & no additional complaints except as documented and Yes Systems reviewed as appropriate & no additional complaints except as documented Constitutional Constitutional: Reports system reviewed and no additional complaints, except as documented and Reports as per HPI ENT Ears, Nose, Mouth, and Throat: Reports system reviewed and no additional complaints, except as documented, Reports as per HPI and Reports dizziness Cardiovascular Cardiovascular: Reports system reviewed and no additional complaints, except as documented and Reports as per HPI Respiratory Respiratory: Reports system reviewed and no additional complaints, except as documented and Reports as per HPI Gastrointestinal Gastrointestingal: Reports system reviewed and no additional complaints, e
[2022-11-14 13:55] VITALS: BP 115/78; PULSE 94; RESP 16; TEMP 37.1; O2SAT 98
== END 2022-11-14 13:57 | disposition home or self-care (01) ==
PROVIDERS: Emergency Provider Nurse Practitioner; PCP Internal Medicine Adolescent Medicine
DX: R42 Dizziness and giddiness (principal); R11.0 Nausea
CPT/HCPCS: 99212; 99213; G0463

== ENCOUNTER 2022-11-16 17:31 | Emergency (ER) | payer OTHER, SELFPAY ==
[2022-11-16 17:32] VITALS: BP 126/76; PULSE 93; RESP 20; TEMP 37.5; O2SAT 99; BMI 21.0
--- NOTE | 2022-11-16 17:47 | EXP.UTC ---
Discharge Plan Disposition Patient Disposition: Home, Self-Care Condition: Good Prescriptions Prescriptions: New prednisone 10 mg tablet 10 mg PO BID 3 Days Qty: 6 0RF amoxicillin [amoxicillin] 500 mg tablet 500 mg PO TID 10 Days Qty: 30 0RF No Action norethindrone-e.estradiol-iron [10/21 ()] 1 mg-20 mcg (21)/75 mg (7) tablet 1 tab PO DAILY Qty: 84 3RF Referrals Follow up/Referrals: Pierre Collins MD [Primary Care Provider] - See instructions Activity Restrictions/Add. Instructions Additional Instructions/Restrictions: Drink plenty of fluids. Take tylenol or ibuprofen for pain or fever. Take the medications as directed. Follow up with your regular doctor. GO TO THE ER FOR ANY WORSENING SYMPTOMS Clinical Impressions Clinical Impression: Strep throat Stand Alone Forms Stand Alone Forms: Work/School Release Instructions Patient Instructions: Strep Throat, DI for Strep Throat Discharge ED Provider: Callum Gresham [facility] General Stated complaint: cold Time Seen by Provider: 11/16/22 17:47 History of Present Illness Provider Complaint: She states that for the past 2 days she has had sore throat, chills, and malaise. Related Data Previous Rx's Medication Instructions Recorded norethindrone 1 mg-ethinyl 1 tab PO DAILY #84 tabs 09/02/22 estradiol 20 mcg (21)-iron 75 mg (7) tablet (10/21 ()) amoxicillin 500 mg tablet 500 mg PO TID 10 days #30 tabs 11/16/22 prednisone 10 mg tablet 10 mg PO BID 3 days #6 tabs 11/16/22 Allergies Allergy/AdvReac Type Severity Reaction Status Date / Time No Known Allergies Allergy Verified 11/16/22 17:52 [facility] Disclaimer: The information contained in this section may have been updated after the patient was seen, as this information can be updated by other users. Medical History No significant past medical history Social History Smoking Status: Never smoker alcohol intake: never substance use type: denies use current occupational status: employed Travel in the last 8 weeks: None ROS Obtained: Yes All systems reviewed & no additional complaints except as documented Constitutional Constitutional: Reports chills and Reports fever(s) Eyes Eyes: Denies eye discharge ENT Ears, Nose, Mouth, and Throat: Reports as per HPI Cardiovascular Cardiovascular: Denies chest pain Respiratory Respiratory: Denies chest congestion and Reports cough Gastrointestinal Gastrointestingal: Reports nausea; Denies abdominal pain, constipation, cramping, diarrhea or vomiting Musculoskeletal Musculoskeletal: Denies arthralgias Integumentary/Breasts Skin/Breast: Denies rash Neurologic Neurologic: Denies paresthesias Physical Exam General General appearance: alert and in no apparent distress Head Head exam: atraumatic, normocephalic and normal inspection Eye Eye exam: Present normal appearance, PERRL and EOMI ENT ENT exam: Present mucous membranes moist and normal external ear exam Expanded ENT Exam TM/Canal exam: Bilateral TM: erythema and bulging Nose exam: Absent sinus tenderness Mouth exam: Present normal external inspection; Absent drooling Teeth exam: Present normal inspection Throat exam: Present tonsillar erythema, tonsillomegaly and tonsillar exudate Neck Neck exam: Present normal inspection, full ROM and trachea midline; Absent tenderness, meningismus or lymphadenopathy Chest Chest inspection: Present normal inspection and symmetric chest wall rise; Absent tenderness Respiratory Respiratory exam: Present normal lung sounds bilaterally; Absent respiratory distress, wheezes or stridor Cardiovascular Cardiovascular exam: Present regular rate and normal rhythm; Absent systolic murmur or diastolic murmur Abdominal Exam Abdominal exam: Present soft and normal bowel sounds; Absent distention, tenderness, g
[2022-11-16 17:58] LABS: UTC Strep Screen (Rapid) Positive (Negative)
[2022-11-16 18:21] VITALS: BP 126/76; PULSE 93; RESP 20; TEMP 37.4; O2SAT 99
== END 2022-11-16 18:20 | disposition home or self-care (01) ==
PROVIDERS: Emergency Provider Nurse Practitioner Family; PCP Internal Medicine Adolescent Medicine
DX: J02.0 Streptococcal pharyngitis (principal)
CPT/HCPCS: 87880; 99212; 99213; G0463

== ENCOUNTER 2025-08-06 10:09 | Outpatient (CLI) | payer OTHER, SELFPAY ==
[2025-08-06 10:40] VITALS: BP 125/76; PULSE 87; RESP 17; TEMP 37.4
[2025-08-06] MEDS: DEXAMETHASONE 4MG/ML 1ML VIAL 8 MG IM (10:40)
== END 2025-08-06 23:59 | disposition home or self-care (01) ==
LOC: INF 10:11
PROVIDERS: PCP Internal Medicine Adolescent Medicine; Visit Provider Internal Medicine Adolescent Medicine
DX: Z01.89 Encounter for other specified special examinations (principal)
CPT/HCPCS: 96372; J1100